=== PATIENT | male | born 1995 ===

== ENCOUNTER 2018-10-31 22:17 | Emergency (ER) | payer OTHER ==
--- NOTE | 2018-10-31 23:27 | ED PDOC ---
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 Associated subjective fevers. Denies ear pain, cough, congestion, vomiting, chest pain, shortness of breath, abdominal pain, recent travel. No medications taken for relief thus far Past Medical History Reviewed: Historical Data, Nursing Documentation, Vital Signs Vital Signs: Last Vital Signs Temp 97.7 F 10/31/18 22:57 Pulse 91 H 10/31/18 22:57 Resp 16 10/31/18 22:57 BP 113/70 10/31/18 22:57 Pulse Ox 100 10/31/18 22:57 - Medical History PMH: No Chronic Diseases - Surgical History Surgical History: No Surg Hx - Family History Family History: States: No Known Family Hx - Home Medications Home Medications: Ambulatory Orders Medication Instructions Recorded Ibuprofen [Motrin Tab] 1 tab PO Q6 PRN #15 tab 11/01/18 - Allergies Allergies/Adverse Reactions: Allergies Allergy/AdvReac Type Severity Reaction Status Date / Time No Known Allergies Allergy Verified 10/31/18 23:03 Review of Systems ROS Statement: Except As Marked, All Systems Reviewed And Found Negative Constitutional: Positive for: Fever, Chills Physical Exam - Reviewed Nursing Documentation Reviewed: Yes Vital Signs Reviewed: Yes - Physical Exam Appears: Positive for: Well, Non-toxic, No Acute Distress Head Exam: Positive for: ATRAUMATIC, NORMAL INSPECTION, NORMOCEPHALIC Skin: Positive for: Normal Color Eye Exam: Positive for: Normal appearance ENT: Positive for: Normal ENT Inspection Cardiovascular/Chest: Positive for: Regular Rate, Rhythm Respiratory: Positive for: Normal Breath Sounds Gastrointestinal/Abdominal: Positive for: Normal Exam Back: Positive for: Normal Inspection Extremity: Positive for: Normal ROM Neurologic/Psych: Positive for: Alert, Oriented (x3) - ECG O2 Sat by Pulse Oximetry: 100 - Progress ED Course And Treament: -Toradol IM -influenza Patient reports feeling better on re-eval Patient educated on findings (via John Malhotra technical lead/certified bilingual interpreter) Advised follow up PMD within 2-3 days Rest. Fluids Ibuprofen rx provided Return precautions given Disposition - Clinical Impression Clinical Impression: Viral illness - Patient ED Disposition Is Patient to be Admitted: No Counseled Patient/Family Regarding: Studies Performed, Diagnosis, Need For Followup, Rx Given - Disposition Referrals: [facility] [Outside] Disposition: Routine/Home Disposition Time: 00:30 Condition: IMPROVED Prescriptions: Ibuprofen [Motrin Tab] 1 tab PO Q6 PRN #15 tab PRN Reason: Pain, Moderate (4-7) Instructions: Viral Syndrome (DC) Print Language: SOUTH SUDANESE
[2018-11-01 01:23] VITALS: BP 116/82; PULSE 79; RESP 17; TEMP 98.4; O2SAT 99
== END 2018-11-01 01:22 | disposition home or self-care (01) ==
LOC: H.ER 22:17
DX: B34.9 Viral infection, unspecified (principal)
CPT/HCPCS: 87804; 96372; 99283; J1885

== ENCOUNTER 2018-11-01 14:51 | Emergency (ER) | payer OTHER ==
[2018-11-01 15:11] VITALS: RESP 17; TEMP 98.4
[2018-11-01] MEDS ORDERED: Sodium Chloride 0.9% 1,000 ML IV STA (15:40)
--- NOTE | 2018-11-01 15:55 | ED PDOC ---
HPI:Nausea, Vomiting, Diarrhea Time Seen by Provider: 11/01/18 15:20 Chief Complaint (Nursing): GI Problem Chief Complaint (Provider): Vomiting, diarrhea, body aches, fever History Per: Patient History/Exam Limitations: no limitations Onset/Duration Of Symptoms: Other (x2 weeks) Current Symptoms Are (Timing): Still Present Associated Symptoms: Fever, Vomiting, Diarrhea Additional Complaint(s): 23 year old male presents to the ED with 2 weeks of diarrhea, vomiting, body aches, and high fevers only at night. Patient states he wakes up drenched in sweat and has never had this before. He states symptoms have worsened over the last 48 hours and he has been unable to eat over the past 24 hours. No one at work is sick and no one at home has a new illness. However, patient reports, his male partner is HIV + and his partner has been taking HIV medications with current viral load undetectable. Patient has not been recently tested for HIV. He has not taken the flu vaccine. Patient indicates he was [place] [facility] [place] doesn't think he received any of his childhood vaccines. He has been living here since 2011. PMD: none provided Past Medical History Reviewed: Historical Data, Nursing Documentation, Vital Signs Vital Signs: Last Vital Signs Temp 98.4 F 11/01/18 15:10 Pulse 98 H 11/01/18 15:10 Resp 17 11/01/18 15:10 BP 114/77 11/01/18 15:10 Pulse Ox 100 11/01/18 15:10 - Medical History PMH: No Chronic Diseases - Surgical History Surgical History: No Surg Hx - Family History Family History: States: Unknown Family Hx - Home Medications Home Medications: Ambulatory Orders Medication Instructions Recorded RX: Ibuprofen [Motrin Tab] 1 tab PO Q6 PRN #15 tab 11/01/18 - Allergies Allergies/Adverse Reactions: Allergies Allergy/AdvReac Type Severity Reaction Status Date / Time No Known Allergies Allergy Verified 11/01/18 15:08 Review of Systems ROS Statement: Except As Marked, All Systems Reviewed And Found Negative Constitutional: Positive for: Fever, Other (body aches) Gastrointestinal: Positive for: Vomiting, Diarrhea Physical Exam - Reviewed Nursing Documentation Reviewed: Yes Vital Signs Reviewed: Yes - Physical Exam Appears: Positive for: Well (well nourished), Non-toxic, No Acute Distress (Appears tired) Head Exam: Positive for: ATRAUMATIC, NORMOCEPHALIC Skin: Positive for: Normal Color, Warm, Dry Eye Exam: Positive for: Normal appearance ENT: Positive for: Pharynx Is (clear with no plaques, swelling, or exudates) Neck: Positive for: Normal, Painless ROM Cardiovascular/Chest: Positive for: Regular Rate, Rhythm Respiratory: Positive for: Normal Breath Sounds. Negative for: Wheezing, Respiratory Distress Gastrointestinal/Abdominal: Positive for: Normal Exam, Soft. Negative for: Tenderness Extremity: Positive for: Normal ROM Neurologic/Psych: Positive for: Alert. Negative for: Motor/Sensory Deficits - Laboratory Results Result Diagrams: 11/01/18 16:04 11/01/18 16:04 - ECG O2 Sat by Pulse Oximetry: 100 (RA) Pulse Ox Interpretation: Normal Medical Decision Making Medical Decision Making: Initial Impression: Work up for acute infectious process. r/o upper respiratory infection, gastroenteritis, influenza. Initial Plan: --CMP --Lipase stat --CBC --Chest X-ray --Motrin 800mg PO --Sodium chloride 1000mL IV --Influenza A B Stat --HIV rapid screening Time: 1755 --Patients chest x-ray is clear. Labs are unremarkable. HIV and influenza are negative. Patient is encouraged to follow up with primary care physician. He was advised to take Tylenol or Motrin for fever. Return parameters discussed. Scribe Attestation: Documented by Rigo Gomez acting as a scribe for Jacki Naranjo MD. Provider Scribe Attestation: All medical record entries made by the Scribe were at my direction and personally dictated by me. I have reviewed the chart and agree that the record accurately reflects my personal performance of the history, physical exam, medical decision making, and the department course for this patient. I have also personally directed, reviewed, and agree with the discharge instructions and disposition. Disposition - Clinical Impression Clinical Impression: Viral illness, Gastroenteritis - Disposition Referrals: [facility] [Outside] Disposition Time: 18:11 Condition: IMPROVED Additional Instructions: Take Tylenol or Motrin as needed for pain. Follow up with primary medical doctor or contact the outpatient clinic for [facility] medical care. Instructions: Viral Gastroenteritis, Cough, Runny Nose, and the Common Cold (DC) Forms: [employer] (Ukrainian), [employer] (Croatian) Print Language: ESTONIAN
[2018-11-01 16:11] LABS: BASO % 0.4 % (0.0-2.0); EOS # 0.2 K/uL (0.0-0.7); EOS % 1.7 % (0.0-4.0); HEMOGLOBIN 12.8 g/dL (12.0-18.0); LYMPH # 1.9 K/uL (1.0-4.3); LYMPH % 16.7 % (20.0-40.0); MEAN CELL VOLUME 82.3 fl (80.0-94.0); MEAN CORPUSCULAR HEMOGLOBIN 27.3 pg (27.0-31.0); MEAN CORPUSCULAR HGB CONC 33.2 g/dL (33.0-37.0); MEAN PLATELET VOLUME 8.1 fl (7.2-11.7); MONO # 0.9 K/uL (0.0-0.8); MONO % 8.2 % (0.0-10.0); NEUT # 8.1 K/uL (1.8-7.0); RBC 4.69 Mil/uL (4.40-5.90); RED CELL DISTRIBUTION WIDTH 13.3 % (11.5-14.5); WHITE BLOOD COUNT 11.1 K/uL (4.8-10.8)
--- NOTE | 2018-11-01 16:32 | RAD ---
Date of service: 11/01/2018 HISTORY: possible admission COMPARISON: No prior. FINDINGS: LUNGS: The lungs are well inflated and clear. PLEURA: No pleural effusions or pneumothorax. CARDIOVASCULAR: The heart is normal in size. No aortic atherosclerotic calcification present. OSSEOUS STRUCTURES: Within normal limits for the patient's age. VISUALIZED UPPER ABDOMEN: Normal. OTHER FINDINGS: None. IMPRESSION: No active pulmonary disease.
[2018-11-01 16:50] LABS: ALB/GLOB RATIO 1.1 (1.0-2.1); ALBUMIN 4.1 g/dL (3.5-5.0); ALT/SGPT 31 U/L (21-72); AST/SGOT 30 U/L (17-59); BLOOD UREA NITROGEN 11 mg/dl (9-20); CALCIUM 9.2 mg/dL (8.4-10.2); GFR NON-AFRICAN AMERICAN > 60; LIPASE 100 U/L (23-300)
[2018-11-01 18:12] VITALS: BP 103/58; PULSE 69
[2018-11-01 20:51] VITALS: O2SAT 100
== END 2018-11-01 18:11 | disposition home or self-care (01) ==
LOC: H.ER 14:51
DX: K52.9 Noninfective gastroenteritis and colitis, unspecified (principal); B34.9 Viral infection, unspecified; B20 Human immunodeficiency virus [HIV] disease
CPT/HCPCS: 71045; 80053; 83690; 85025; 87390; 87804; 96360; 99285; J7030

== ENCOUNTER 2018-11-08 18:23 | Emergency (ER) | payer OTHER ==
[2018-11-08 18:54] VITALS: TEMP 98.3; O2SAT 100
[2018-11-08 20:59] LABS: BASO # 0.1 K/uL (0.0-0.2); BASO % 0.7 % (0.0-2.0); EOS # 0.2 K/uL (0.0-0.7); EOS % 1.3 % (0.0-4.0); HEMOGLOBIN 11.8 g/dL (12.0-18.0); LYMPH # 2.6 K/uL (1.0-4.3); LYMPH % 20.6 % (20.0-40.0); MEAN CELL VOLUME 82.3 fl (80.0-94.0); MEAN CORPUSCULAR HEMOGLOBIN 26.4 pg (27.0-31.0); MEAN CORPUSCULAR HGB CONC 32.1 g/dL (33.0-37.0); MEAN PLATELET VOLUME 7.9 fl (7.2-11.7); MONO # 1.4 K/uL (0.0-0.8); MONO % 10.9 % (0.0-10.0); NEUT # 8.5 K/uL (1.8-7.0); NEUT % 66.5 % (50.0-75.0); RBC 4.48 Mil/uL (4.40-5.90); RED CELL DISTRIBUTION WIDTH 13.9 % (11.5-14.5); WHITE BLOOD COUNT 12.8 K/uL (4.8-10.8)
--- NOTE | 2018-11-08 21:04 | ED PDOC ---
HPI: Male Pain Time Seen by Provider: 11/08/18 18:38 Chief Complaint (Nursing): Male Genitourinary Chief Complaint (Provider): Male Genitourinary History Per: Patient History/Exam Limitations: no limitations Onset/Duration Of Symptoms: Days (x14) Current Symptoms Are (Timing): Still Present Additional Complaint(s): 23 y/o male with no significant PMHx presents to the ED for evaluation of nightly fevers, onset two weeks ago. Patient believes he has been having bila teral inguinal hernia that are sometimes associated with rectal bleeding when using the bathroom. Otherwise, patient denies urinary discomfort. History obtained through [employer], #[id number]. PMD: no provider Past Medical History Reviewed: Historical Data, Nursing Documentation, Vital Signs Vital Signs: Last Vital Signs Temp 98.3 F 11/08/18 18:52 Pulse 79 11/08/18 18:52 Resp 18 11/08/18 18:52 BP 95/58 L 11/08/18 18:52 Pulse Ox 100 11/08/18 18:52 - Medical History PMH: No Chronic Diseases - Surgical History Surgical History: No Surg Hx - Family History Family History: States: Unknown Family Hx - Social History Current smoker - smoking cessation education provided: No Alcohol: None Drugs: Denies - Home Medications Home Medications: Ambulatory Orders Medication Instructions Recorded RX: Ibuprofen [Motrin Tab] 1 tab PO Q6 PRN #15 tab 11/01/18 Docusate Sodium [Colace] 100 mg PO BID PRN #14 capsule 11/09/18 - Allergies Allergies/Adverse Reactions: Allergies Allergy/AdvReac Type Severity Reaction Status Date / Time No Known Allergies Allergy Verified 11/08/18 18:46 Review of Systems ROS Statement: Except As Marked, All Systems Reviewed And Found Negative Constitutional: Positive for: Fever (at night) Gastrointestinal: Positive for: Rectal Pain (rectabl bleeding ) Genitourinary Male: Positive for: Other (bilateral inguinal hernia) Physical Exam - Reviewed Nursing Documentation Reviewed: Yes Vital Signs Reviewed: Yes - Physical Exam Appears: Positive for: Well Skin: Positive for: Normal Color Eye Exam: Positive for: Normal appearance ENT: Positive for: Normal ENT Inspection Neck: Positive for: Normal Cardiovascular/Chest: Positive for: Regular Rate, Rhythm Respiratory: Positive for: Normal Breath Sounds Gastrointestinal/Abdominal: Positive for: Normal Exam, Bowel Sounds, Soft, Tenderness, Other (inginual region: bilateral lymphadenopathy. no hernia) Extremity: Positive for: Normal ROM Neurologic/Psych: Positive for: Alert, Oriented - Laboratory Results Result Diagrams: 11/08/18 20:55 11/08/18 20:55 - ECG O2 Sat by Pulse Oximetry: 100 (RA) Pulse Ox Interpretation: Normal Medical Decision Making Medical Decision Making: Time: 2029 Impression: 23yo male with blood in stool rule otu infection/inflammation/hernia Plan: -- CMP -- CBC with differentials -- Guiac Stool 0003 Guiac negative for blood 0100 CT Abdomen/Pelvis FINDINGS: LUNG BASES: The lung bases appear clear. No pleural effusions are seen. LIVER: Unremarkable. GALLBLADDER AND BILE DUCTS: The gallbladder is contracted. No radioopaque gallstones are seen. No biliary ductal dilatation is evident. PANCREAS: Unremarkable. SPLEEN: Unremarkable. ADRENAL GLANDS: Unremarkable. KIDNEYS, URETERS, AND BLADDER: The kidneys appear within normal limits. There is no hydronephrosis or hydroureter. No urinary calculi are seen. STOMACH AND BOWEL: Large amount of fecal material is seen throughout the colon compatible with constipation. APPENDIX: No evidence of acute appendicitis on CT examination. PERITONEUM: No free fluid. No free air. LYMPH NODES: Bilateral inguinal borderline enlarged lymph nodes are seen, largest on the left is measuring 2.2 x 1.3 cm. REPRODUCTIVE: Unremarkable as visualized. VASCULATURE: No evidence of abdominal aortic aneurysm. BONES: No aggressive appearing osseous lesion. No acute osseous pathology evident. IMPRESSION: 1. Large amount of fecal material is seen throughout the colon compatible with constipation. 2. Bilateral inguinal borderline enlarged lymph nodes are seen, largest on the left is measuring 2.2 x 1.3 cm. 0133 Rapid HIV ordered for further evaluation due to enlarged inguinal lymph nodes. 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 0230 Lab results reviewed, HIV test non-reactive. pt aware of CT resuls and need for outpatient follow up and use of colace and high fiber diet to prevent further constipation Patient stable for discharge home, and instructed to follow up at [facility] within one week. Scribe Attestation: Documented by Jennifer Amaya, acting as a scribe for Jes Proctor MD. Provider Scribe Attestation: All medical record entries made by the Scribe were at my direction and personally dictated by me. I have reviewed the chart and agree that the record accurately reflects my personal performance of the history, physical exam, medical decision making, and the department course for this patient. I have also personally directed, reviewed, and agree with the discharge instructions and disposition. Disposition - Clinical Impression Clinical Impression: Constipation, Lymphadenopathy - Patient ED Disposition Is Patient to be Admitted: No Counseled Patient/Family Regarding: Studies Performed, Diagnosis, Need For Followup - Disposition Referrals: [facility] [Outside] [facility] [Outside] Disposition: Routine/Home Disposition Time: 02:39 Condition: IMPROVED Additional Instructions: follow up in the clinic this week for further workup return to the ED with any worsening or concerning symptoms Prescriptions: Docusate Sodium [Colace] 100 mg PO BID PRN #14 capsule PRN Reason: Constipation Instructions: Constipation, Adult (DC) Forms: [employer] (Syriac), [employer] (Swedish) Print Language: CITIZEN OF [place]
[2018-11-08 21:24] LABS: ALB/GLOB RATIO 0.9 (1.0-2.1); ALBUMIN 3.7 g/dL (3.5-5.0); ALT/SGPT 41 U/L (21-72); AST/SGOT 25 U/L (17-59); BLOOD UREA NITROGEN 13 mg/dl (9-20); CALCIUM 8.6 mg/dL (8.4-10.2); GFR NON-AFRICAN AMERICAN > 60
[2018-11-08] MEDS ORDERED: Sodium Chloride 0.9% 50 ML IV ONE (21:50)
[2018-11-08] MEDS ORDERED: Iohexol 300 100 ML IJ ONE (21:50)
[2018-11-09 00:17] VITALS: RESP 16
[2018-11-09 01:58] VITALS: BP 116/82; PULSE 82
--- NOTE | 2018-11-09 13:50 | CT ---
Date of service: 11/08/2018 PROCEDURE: CT Abdomen and Pelvis with contrast HISTORY: bilateral lymphadenopathy COMPARISON: None available. TECHNIQUE: CT scan of the abdomen and pelvis was performed after administration of intravenous contrast. Oral contrast was not administered. Coronal and sagittal reformatted images were obtained. Contrast dose: Radiation dose: Total exam DLP = 312.57 mGy-cm. This CT exam was performed using one or more of the following dose reduction techniques: Automated exposure control, adjustment of the mA and/or kV according to patient size, and/or use of iterative reconstruction technique. FINDINGS: LOWER THORAX: The visualized lungs are clear. LIVER: Normal in size with homogeneous enhancement. No gross lesion or ductal dilatation. GALLBLADDER AND BILE DUCTS: The gallbladder is contracted. PANCREAS: Normal in size with homogeneous enhancement. No gross lesion or ductal dilatation. SPLEEN: Mild splenomegaly. Normal enhancement. ADRENALS: No discrete nodule. KIDNEYS AND URETERS: Show should normal in size with homogeneous enhancement. 2 mm nonobstructing stone in the right interpolar region no hydronephrosis. No solid mass. VASCULATURE: No aortic aneurysm. No aortic atherosclerotic calcifications present. BOWEL: Evaluation of the bowel is limited in the absence of oral contrast. The small bowel loops are normal in caliber. There is large amount of stool in the colon. There is apparent mild circumferential mural thickening in the rectum. No bowel obstruction. APPENDIX: Normal appendix. PERITONEUM: No free fluid. No free air. LYMPH NODES: There are enlarged bilateral pelvic side chain lymph nodes with central low attenuation, the larger on the left measures 2.9 x 2.7 cm. BLADDER: Well distended and normal in appearance. REPRODUCTIVE: The prostate gland is normal in size. BONES: No acute fracture. Within normal limits for the patient's age. OTHER FINDINGS: There are enlarged bilateral inguinal lymph nodes with central low-attenuation. IMPRESSION: Bilateral pelvic the site chain lymphadenopathy and bilateral inguinal lymphadenopathy with presumable central necrosis, the largest left pelvic lymph node mass measures 2.9 x 2.7 cm. These are nonspecific and may be infectious, inflammatory or neoplastic in etiology. Clinical correlation and follow-up is advised. Apparent mild circumferential mural thickening of the rectum is nonspecific and could be related to underdistention however acute nonspecific infectious/inflammatory proctitis or neoplasm cannot be excluded. A preliminary report was provided by [employer]. The final report is tagged to the PA review folder.
== END 2018-11-09 01:57 | disposition home or self-care (01) ==
LOC: H.ER 18:23
DX: K59.00 Constipation, unspecified (principal); R59.9 Enlarged lymph nodes, unspecified
CPT/HCPCS: 74177; 80053; 85025; 87390; 99283; G0328; Q9967